=== PATIENT | male | born 1955 | race Caucasian/White ===

== ENCOUNTER → 2020-09-30 11:18 | Outpatient (CLI) | payer OTHER, MEDICAID, SELFPAY ==
--- NOTE | 2020-09-30 11:24 | DI.CT.S_ITS ---
PROCEDURE: CT ANGIO ABD AORTA RUNOFF INDICATIONS: Peripheral vascular disease, unspecified TECHNIQUE: After the administration of intravenous contrast, 2.5 mm sections acquired from T12 to the feet, with optional delayed image acquisition from the knees to the feet. 3-dimensional maximum intensity projection (MIP) coronal and sagittal reformats, and/or 3-dimensional volume rendering reformatting was then performed. For radiation dose reduction, the following was used: automated exposure control. COMPARISON: None. FINDINGS: Image quality: Excellent. Extravascular tissues: Mild dependent lower lobe atelectasis bilaterally. Heart size is normal. Liver is normal in size and enhancement. Gallbladder is grossly unremarkable . Biliary system is non dilated. Pancreas enhances normally. Spleen is normal in size and enhancement. No adrenal nodules. Kidneys are normal in size and enhancement, without hydronephrosis. Non opacified bowel loops demonstrate normal wall thickness and enhancement. No free fluid or air. No retroperitoneal or mesenteric adenopathy. No ventral hernias. Bladder wall thickness is normal. No inguinal hernias or adenopathy. No suspicious bony lesions. No vertebral body compression fractures. Abdominal aorta: There is moderate diffuse plaque causing mild diffuse stenosis. No aneurysm nor dissection. 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 Mild diffuse stenosis of the superior mesenteric artery origin. Inferior mesenteric artery is patent. Single bilateral renal arteries are present which demonstrate mild diffuse stenosis bilaterally. Right lower extremity: Common and external iliac arteries demonstrate moderate diffuse plaque causing mild diffuse stenosis. High-grade origin stenosis of the internal iliac artery. Common femoral artery demonstrates moderate diffuse plaque causing mild diffuse stenosis. Profunda femoral artery is moderately diffusely stenotic. Superficial femoral artery demonstrates moderate diffuse plaque causing mild diffuse stenosis with a superimposed high-grade focal stenosis distally. Above and below knee popliteal artery is mildly stenotic. Anterior tibial artery demonstrates multifocal high-grade calcific stenoses. Tibioperoneal trunk is mildly diffusely stenotic. Peroneal artery is patent to its normal terminus. Posterior tibial artery demonstrates multifocal moderate stenoses. Left lower extremity: Common iliac artery demonstrates moderate diffuse plaque causing mild diffuse stenosis. Internal iliac artery is occluded at its origin. External iliac artery demonstrates severe diffuse stenosis. Common femoral artery demonstrates moderate diffuse plaque causing mild to moderate diffuse stenosis. Profunda femoral artery demonstrates a moderate to high-grade origin stenosis. Superficial femoral artery demonstrates multifocal moderate high-grade stenoses with a superimposed eccentric calcific high-grade stenosis distally. Above and below knee popliteal artery demonstrates moderate diffuse plaque causing mild writ diffuse stenosis. Anterior tibial artery demonstrates multifocal high-grade stenoses. Tibioperoneal trunk demonstrates moderate diffuse calcific stenosis with a superimposed high-grade focal stenosis distally. Peroneal artery is patent. Posterior tibial artery demonstrates multifocal high-grade stenoses. IMPRESSION: 1. No significant right-sided inflow stenosis. High-grade left inflow stenosis. 2. Bilateral outflow stenosis as described above. 3. Bilateral runoff vessel stenosis as described above. 4. Mesenteric artery stenoses as above. Dictated by: Didier Ivy M.D. on 09/30/2020 at 14:18 Approved by: Didier Ivy M.D. on 09/30/2020 at 14:23
[2020-09-30 13:24] LABS: Estimated Glomerular Filt Rate > 60.0 mL/min (>60)
== END ==
PROVIDERS: Family Provider Family Medicine Geriatric Medicine; PCP Surgery; Referring Provider Surgery; Visit Provider Surgery
DX: I70.223 Atherosclerosis of native arteries of extremities with rest pain, bilateral legs (principal); K55.1 Chronic vascular disorders of intestine
CPT/HCPCS: 36415; 75635; 82565; Q9967